=== PATIENT | female | born 1935 | race Caucasian/White ===

== ENCOUNTER 2016-09-23 17:50 | Inpatient (IN) | payer OTHER ==
[~2016-09-23] VITALS: Ht 172.7 cm; Wt 125.6 kg
[2016-09-23 17:50] VITALS: BP 101/54; PULSE 83; RESP 19; TEMP 98.2; O2SAT 92
[2016-09-23] MEDS ORDERED: IPRATROPIUM BROM 0.5 MG/2.5 ML VIAL.NEB (ATROVENT) INH ONE (18:15)
[2016-09-23] MEDS ORDERED: LEVOFLOXACIN 500 MG/D5W 100 ML IV ONE (18:15)
[2016-09-23] MEDS ORDERED: FUROSEMIDE 40 MG/4 ML VIAL IVP ONE (18:15)
[2016-09-23] MEDS ORDERED: ALBUTEROL SULFATE 0.083% 2.5 MG/3 ML VIAL.NEB INH PRN (18:15)
[2016-09-23 18:40] LABS: ABG TOTAL HEMOGLOBIN 12.9 G/dL (12.0-18.0); BLOOD GAS BASE EXCESS 1.5 mmol/L (-3.0-3.0); BLOOD GAS COHb% 1.4 % (0.5-1.5); BLOOD GAS HHB 9.3 % (0.0-6.0); BLOOD O2Hb% 89.2 % (94.0-97.0)
[2016-09-23 18:51] LABS: HEMATOCRIT 35.5 % (36-48); HEMOGLOBIN 11.8 g/dL (12.0-16.0); MEAN CORPUSCULAR HEMOGLOBIN 30 pg (27-31); MEAN CORPUSCULAR HGB CONC 33 % (32-36); MEAN CORPUSCULAR VOLUME 91 fL (79.0-98.0); PLATELET COUNT (AUTO) 177 K/uL (130-430); RED BLOOD CELL COUNT(AUTO) 3.89 MIL/uL (4.2-6.2); WHITE BLOOD COUNT (AUTO) 17.6 K/uL (4.8-10.8)
[2016-09-23 19:03] LABS: ANION GAP 6 (5-15); CALCIUM 8.6 mg/dL (8.4-11.0); CHLORIDE 95 mmol/L (98-107); GLUCOSE 191 mg/dL (70-99); POTASSIUM 3.9 mmol/L (3.5-5.1); SODIUM SERUM 136 mmol/L (136-145); UREA NITROGEN, BLOOD 29 mg/dL (8-21)
[2016-09-23 19:07] LABS: INR 1.1 (0.8-1.2); PROTHROMBIN TIME 11.5 SECS (9.5-12.5)
[2016-09-23 19:08] LABS: ALANINE AMINOTRANSFERASE 48 U/L (12-78); ALBUMIN 3.4 g/dL (3.4-4.8); ASPARTATE AMINOTRANSFERASE 30 U/L (10-37); TOTAL BILIRUBIN 0.5 mg/dL (0.0-1.0); TOTAL PROTEIN, SERUM 7.8 g/dL (6.4-8.3)
[2016-09-23] MEDS ORDERED: ERGO400T7 PO (19:15)
[2016-09-23] MEDS ORDERED: METF1000 PO (19:15)
[2016-09-23] MEDS ORDERED: LEVO100T9 PO (19:15)
[2016-09-23] MEDS ORDERED: ACET-2165 PO (19:15)
[2016-09-23] MEDS ORDERED: LIP40 PO (19:15)
[2016-09-23] MEDS ORDERED: VALS1TAB80 PO (19:15)
[2016-09-23] MEDS ORDERED: TRAZ-123 PO (19:15)
[2016-09-23] MEDS ORDERED: IBUP-1480 PO (19:15)
[2016-09-23] MEDS ORDERED: PEPTO PO (19:15)
[2016-09-23] MEDS ORDERED: DIVA250T34 PO (19:15)
[2016-09-23] MEDS ORDERED: BRI.2% OP (19:15)
[2016-09-23] MEDS ORDERED: SER25 PO (19:15)
[2016-09-23] MEDS ORDERED: NACL 0.9% 1,000 ML IV ONE (20:00)
[2016-09-23 20:01] LABS: ATYPICAL LYMPHOCYTES % 5 % (0-0); BAND % (MANUAL) 22 % (0-6); BASOPHILS % (MANUAL) 0 % (0-2); EOSINOPHILS % (MANUAL) 0 % (0-7); LYMPHOCYTES % (MANUAL) 8 % (20-46); METAMYELOCYTES % 1 % (0-0); MONOCYTES % (MANUAL) 4 % (0-11)
[2016-09-23 20:02] LABS: MYELOCYTES % 1 % (0-0)
[2016-09-23] MEDS ORDERED: IBUPROFEN 800 MG TABLET PO PRN (20:45)
[2016-09-23] MEDS ORDERED: ACETAMINOPHEN 325 MG TABLET PO PRN (20:45)
[2016-09-23 21:30] VITALS: BP 132/84; PULSE 89; PULSE 90; RESP 33; TEMP 97.8; TEMP 98.7; O2SAT 93
[2016-09-23] MEDS ORDERED: BISMUTH SUBSALICYLATE 240 ML BOTTLE PO PRN (21:45)
[2016-09-23 22:00] VITALS: BP 110/74; PULSE 75; RESP 26; O2SAT 89
[2016-09-23 22:04] VITALS: BP 108/71; PULSE 82
[2016-09-23] MEDS: DIVALPROEX SODIUM 250 MG TABLET(DEPAKOTE) PO SCH (22:57)
[2016-09-23] MEDS: ATORVASTATIN 20 MG TABLET PO SCH (22:57)
[2016-09-23] MEDS: QUEtiapine FUMARATE 25 MG TABLET PO SCH (22:57)
[2016-09-23] MEDS: traZODone HCL 50 MG TABLET (DESYREL) PO SCH (22:57)
[2016-09-23 23:00] VITALS: BP 121/74; PULSE 77; RESP 26; O2SAT 93
[2016-09-24] VITALS (34 sets, daily range): BP systolic 83–148; BP diastolic 30–80; PULSE 51–95; RESP 10–38; TEMP 97.4–99.4; O2SAT 83–98
[2016-09-24] MEDS ORDERED: FUROSEMIDE 40 MG/4 ML VIAL ONE (01:23)
[2016-09-24] MEDS ORDERED: IPRATROPIUM BROM 0.5 MG/2.5 ML VIAL.NEB (ATROVENT) INH PRN (01:30)
[2016-09-24] MEDS ORDERED: FUROSEMIDE 40 MG/4 ML VIAL IVP ONE (01:30)
[2016-09-24] MEDS ORDERED: ALBUTEROL SULFATE 0.083% 2.5 MG/3 ML VIAL.NEB INH PRN (01:30)
[2016-09-24 01:57] LABS: BLOOD GAS PH 7.239 (7.350-7.450)
[2016-09-24 01:58] LABS: ABG TOTAL HEMOGLOBIN 11.8 G/dL (12.0-18.0); BLOOD GAS BASE EXCESS 3.1 mmol/L (-3.0-3.0); BLOOD GAS COHb% 1.1 % (0.5-1.5); BLOOD GAS HHB 8.2 % (0.0-6.0); BLOOD O2Hb% 90.1 % (94.0-97.0)
[2016-09-24] MEDS ORDERED: FLU VACC QS 2016-17(36MOS+)/PF 0.5 ML/SYR SYRINGE I.M. PRN (03:00)
[2016-09-24] MEDS: IPRATROPIUM BROM 0.5 MG/2.5 ML VIAL.NEB (ATROVENT) INH SCH ×6 (03:51→23:21)
[2016-09-24] MEDS: ALBUTEROL SULFATE 0.083% 2.5 MG/3 ML VIAL.NEB INH SCH ×6 (03:51→23:21)
[2016-09-24 04:36] LABS: BASOPHILS # (AUTO) 0.2 K/uL (0.0-0.2); HEMATOCRIT 33.8 % (36-48); LYMPHOCYTES # (AUTO) 0.5 K/uL (1.0-5.5); LYMPHOCYTES % (AUTO) 3.1 % (20.5-51.5); MEAN CORPUSCULAR HEMOGLOBIN 30 pg (27-31); MEAN CORPUSCULAR HGB CONC 33 % (32-36); MEAN CORPUSCULAR VOLUME 92 fL (79.0-98.0); MONOCYTES # (AUTO) 2.5 K/uL (0.0-1.0); MONOCYTES % (AUTO) 14.3 % (1.7-9.3); NEUTROPHILS # (AUTO) 14.3 K/uL (1.8-7.7); NEUTROPHILS % (AUTO) 81.6 % (40.0-70.0); PLATELET COUNT (AUTO) 147 K/uL (130-430); RED BLOOD CELL COUNT(AUTO) 3.69 MIL/uL (4.2-6.2); RED CELL DISTRIBUTION WIDTH 15.9 % (9.0-15.0); WHITE BLOOD COUNT (AUTO) 17.5 K/uL (4.8-10.8)
[2016-09-24 04:51] LABS: ANION GAP 6 (5-15); CALCIUM 8.4 mg/dL (8.4-11.0); CHLORIDE 97 mmol/L (98-107); CREATININE 1.29 mg/dL (0.55-1.30); GLUCOSE 172 mg/dL (70-99); POTASSIUM 4.1 mmol/L (3.5-5.1); SODIUM SERUM 138 mmol/L (136-145); UREA NITROGEN, BLOOD 30 mg/dL (8-21)
[2016-09-24 05:40] LABS: FREE T4 (FREE THYROXINE) 0.8 ng/dl (0.8-1.5); THYROID STIMULATING HORMONE 0.54 uIu/mL (0.36-3.74); VALPROIC ACID 47 ug/mL (50-100)
[2016-09-24] MEDS: LEVOTHYROXINE SODIUM 0.1 MG TABLET PO SCH (06:00)
[2016-09-24] MEDS ORDERED: BISMUTH SUBSALICYLATE 240 ML BOTTLE PO PRN (07:01)
[2016-09-24] MEDS ORDERED: BISMUTH SUBSALICYLATE 262 MG TAB.CHEW PO PRN (07:15)
[2016-09-24] MEDS: VALSARTAN 160 MG TABLET (DIOVAN) PO SCH (09:00)
[2016-09-24] MEDS: CHOLECALCIFEROL (VITAMIN D-3) 400 UNIT TABLET PO SCH (09:00)
[2016-09-24] MEDS: HYDROCHLOROTHIAZIDE 25 MG TABLET (HCTZ) PO SCH (09:00)
[2016-09-24] MEDS ORDERED: VALSARTAN PO SCH (09:00)
[2016-09-24] MEDS ORDERED: HCTZ PO SCH (09:00)
[2016-09-24] MEDS: DIVALPROEX SODIUM 250 MG TABLET(DEPAKOTE) PO SCH ×2 (09:00→20:44)
[2016-09-24 10:14] LABS: BLOOD GAS PH 7.328 (7.350-7.450)
[2016-09-24 10:16] LABS: ABG TOTAL HEMOGLOBIN 11.6 G/dL (12.0-18.0); BLOOD GAS BASE EXCESS 7.5 mmol/L (-3.0-3.0); BLOOD GAS COHb% 0.7 % (0.5-1.5); BLOOD GAS HHB 11.4 % (0.0-6.0); BLOOD O2Hb% 87.4 % (94.0-97.0)
[2016-09-24] MEDS ORDERED: NS 500 ML IV ONE (10:30)
[2016-09-24] MEDS ORDERED: methylPREDNISolone SOD SUCC/PF 62.5 MG/ML VIAL IVP ONE (10:45)
[2016-09-24] MEDS ORDERED: MIDAZOLAM HCL 5 MG/5 ML VIAL ONE (11:24)
[2016-09-24] MEDS ORDERED: LORazepam 2 MG/ML VIAL IVP PRN (11:30)
[2016-09-24] MEDS: LORazepam 2 MG/ML VIAL IVP PRN ×2 (11:45→12:26)
[2016-09-24] MEDS: NACL 0.9% 1,000 ML IV SCH ×2 (12:02→18:00)
[2016-09-24] MEDS ORDERED: LORazepam 2 MG/ML VIAL ONE (12:22)
[2016-09-24] MEDS ORDERED: MIDAZOLAM HCL 2 MG/2 ML VIAL (VERSED) IVP ONE ×2 (12:30→15:45)
[2016-09-24] MEDS ORDERED: ETOMIDATE 20 MG/ 10 ML VIAL (AMIDATE) IVP ONE ×2 (12:30→15:36)
[2016-09-24] MEDS ORDERED: MIDAZOLAM HCL 5 MG/5 ML VIAL IVP ONE (12:30)
[2016-09-24 12:36] LABS: ABG TOTAL HEMOGLOBIN 11.7 G/dL (12.0-18.0); BLOOD GAS BASE EXCESS 1.7 mmol/L (-3.0-3.0); BLOOD GAS COHb% 0.9 % (0.5-1.5); BLOOD GAS HHB 3.7 % (0.0-6.0); BLOOD O2Hb% 94.8 % (94.0-97.0)
[2016-09-24] MEDS: PROPOFOL DRIP 100 ML IV PRN ×3 (12:42→23:49)
[2016-09-24] MEDS: cefTRIAXone 1 GM IVPB PREMIX 50 ML IV SCH (12:44)
[2016-09-24] MEDS: BRIMONIDINE TARTRATE 0.2% 5 mL EYE DROPS OP SCH ×2 (14:26→20:43)
[2016-09-24] MEDS: methylPREDNISolone SOD SUCC/PF 62.5 MG/ML VIAL IVP SCH ×2 (16:02→21:19)
[2016-09-24] MEDS: INSULIN REGULAR, HUMAN 100 UNITS/ML, 10 ML VIAL (novoLIN R) SUBCUT PRN (18:03)
[2016-09-24] MEDS: traZODone HCL 50 MG TABLET (DESYREL) PO SCH (20:43)
[2016-09-24] MEDS: ATORVASTATIN 20 MG TABLET PO SCH (20:44)
[2016-09-24] MEDS: QUEtiapine FUMARATE 25 MG TABLET PO SCH (20:44)
[2016-09-24] MEDS ORDERED: LEVOFLOXACIN 500 MG/D5W 100 ML IV SCH (21:00)
[2016-09-24] MEDS ORDERED: LEVOFLOXACIN 250 MG/D5W 50 ML IV SCH (21:00)
[2016-09-25] VITALS (35 sets, daily range): BP systolic 108–170; BP diastolic 54–92; PULSE 38–101; RESP 18–28; TEMP 97.3–98.6; O2SAT 87–99; Ht 172.7 cm; Wt 125.6 kg
[2016-09-25] MEDS: NACL 0.9% 1,000 ML IV SCH ×3 (00:03→16:24)
[2016-09-25] MEDS: ALBUTEROL SULFATE 0.083% 2.5 MG/3 ML VIAL.NEB INH SCH ×5 (03:51→23:26)
[2016-09-25] MEDS: IPRATROPIUM BROM 0.5 MG/2.5 ML VIAL.NEB (ATROVENT) INH SCH ×5 (03:51→23:26)
[2016-09-25] MEDS: PROPOFOL DRIP 100 ML IV PRN ×4 (05:00→20:05)
[2016-09-25] MEDS: LEVOTHYROXINE SODIUM 0.1 MG TABLET PO SCH (05:05)
[2016-09-25] MEDS: methylPREDNISolone SOD SUCC/PF 62.5 MG/ML VIAL IVP SCH ×3 (05:05→22:43)
[2016-09-25 06:41] LABS: HEMATOCRIT 30.8 % (36-48); HEMOGLOBIN 10.2 g/dL (12.0-16.0); MEAN CORPUSCULAR HEMOGLOBIN 30 pg (27-31); MEAN CORPUSCULAR HGB CONC 33 % (32-36); MEAN CORPUSCULAR VOLUME 89 fL (79.0-98.0); PLATELET COUNT (AUTO) 132 K/uL (130-430); RED BLOOD CELL COUNT(AUTO) 3.46 MIL/uL (4.2-6.2); RED CELL DISTRIBUTION WIDTH 15.7 % (9.0-15.0)
[2016-09-25 07:02] LABS: ALANINE AMINOTRANSFERASE 45 U/L (12-78); ALBUMIN 2.7 g/dL (3.4-4.8); ANION GAP 9 (5-15); ASPARTATE AMINOTRANSFERASE 30 U/L (10-37); CALCIUM 8.3 mg/dL (8.4-11.0); CHLORIDE 100 mmol/L (98-107); CHOLESTEROL 121 mg/dL (<200); CREATININE 0.97 mg/dL (0.55-1.30); GLUCOSE 242 mg/dL (70-99); HDL CHOLESTEROL 32 mg/dL (>55); LDL CHOLESTEROL 70 mg/dL (<100); POTASSIUM 3.5 mmol/L (3.5-5.1); SODIUM SERUM 137 mmol/L (136-145); THYROID STIMULATING HORMONE 0.14 uIu/mL (0.34-4.82); TOTAL BILIRUBIN 0.5 mg/dL (0.0-1.0); TOTAL PROTEIN, SERUM 6.6 g/dL (6.4-8.3); TRIGLYCERIDES 97 mg/dL (30-150); UREA NITROGEN, BLOOD 30 mg/dL (8-21)
[2016-09-25 07:07] LABS: WHITE BLOOD COUNT (AUTO) 9.5 K/uL (4.8-10.8)
[2016-09-25] MEDS: INSULIN REGULAR, HUMAN 100 UNITS/ML, 10 ML VIAL (novoLIN R) SUBCUT PRN ×2 (08:03→17:24)
[2016-09-25 08:07] LABS: ABG TOTAL HEMOGLOBIN 11.3 G/dL (12.0-18.0); BLOOD GAS BASE EXCESS 3.4 mmol/L (-3.0-3.0); BLOOD GAS PH 7.522 (7.350-7.450)
[2016-09-25 08:08] LABS: BLOOD GAS COHb% 0.5 % (0.5-1.5); BLOOD GAS HHB 9.5 % (0.0-6.0); BLOOD O2Hb% 89.6 % (94.0-97.0)
[2016-09-25] MEDS ORDERED: ATROPINE SULFATE 1 MG/10 ML SYRINGE IVP ONE ×2 (08:50→09:00)
[2016-09-25] MEDS ORDERED: THEOPHYLLINE ANHYDROUS 200 MG TAB.SR.12H PO SCH (09:00)
[2016-09-25] MEDS ORDERED: ENOXAPARIN SODIUM 40 MG/0.4 ML SYRINGE SUBCUT SCH (09:00)
[2016-09-25] MEDS ORDERED: POTASSIUM CHLORIDE 20 MEQ TAB.PRT.SR NG ONE (09:15)
[2016-09-25] MEDS: BRIMONIDINE TARTRATE 0.2% 5 mL EYE DROPS OP SCH ×2 (09:20→20:23)
[2016-09-25] MEDS: HYDROCHLOROTHIAZIDE 25 MG TABLET (HCTZ) PO SCH (09:21)
[2016-09-25] MEDS: DIVALPROEX SODIUM 250 MG TABLET(DEPAKOTE) PO SCH ×2 (09:21→20:23)
[2016-09-25] MEDS: VALSARTAN 160 MG TABLET (DIOVAN) PO SCH (09:21)
[2016-09-25] MEDS: AZITHROMYCIN 250 MG TABLET PO SCH (09:22)
[2016-09-25] MEDS: CHOLECALCIFEROL (VITAMIN D-3) 400 UNIT TABLET PO SCH (09:22)
[2016-09-25 10:11] LABS: ATYPICAL LYMPHOCYTES % 0 % (0-0); BAND % (MANUAL) 3 % (0-6); BASOPHILS % (MANUAL) 0 % (0-2); EOSINOPHILS % (MANUAL) 0 % (0-7); LYMPHOCYTES % (MANUAL) 7 % (20-46); MONOCYTES % (MANUAL) 5 % (0-11)
[2016-09-25 10:12] LABS: SICKLE CELLS RARE
[2016-09-25] MEDS ORDERED: ENOXAPARIN SODIUM 80 MG/0.8 ML SYRINGE SUBCUT ONE (10:30)
[2016-09-25] MEDS ORDERED: THEOPHYLLINE ANHYDROUS 300 MG TAB.SR.12H PO ONE (11:45)
[2016-09-25] MEDS: cefTRIAXone 1 GM IVPB PREMIX 50 ML IV SCH (11:54)
[2016-09-25] MEDS: QUEtiapine FUMARATE 25 MG TABLET PO SCH (20:23)
[2016-09-25] MEDS: ATORVASTATIN 20 MG TABLET PO SCH (20:23)
[2016-09-25] MEDS: traZODone HCL 50 MG TABLET (DESYREL) PO SCH (20:23)
[2016-09-25] MEDS: ENOXAPARIN SODIUM 80 MG/0.8 ML SYRINGE SUBCUT SCH (20:26)
[2016-09-26] VITALS (38 sets, daily range): BP systolic 105–146; BP diastolic 51–91; PULSE 39–81; RESP 9–33; TEMP 97.4–98.4; O2SAT 90–97
[2016-09-26] MEDS: PROPOFOL DRIP 100 ML IV PRN ×5 (00:54→21:05)
[2016-09-26] MEDS: NACL 0.9% 1,000 ML IV SCH ×4 (01:04→21:54)
[2016-09-26] MEDS: ALBUTEROL SULFATE 0.083% 2.5 MG/3 ML VIAL.NEB INH SCH ×6 (03:51→23:00)
[2016-09-26] MEDS: IPRATROPIUM BROM 0.5 MG/2.5 ML VIAL.NEB (ATROVENT) INH SCH ×6 (03:52→23:00)
[2016-09-26] MEDS: methylPREDNISolone SOD SUCC/PF 62.5 MG/ML VIAL IVP SCH ×3 (06:13→21:26)
[2016-09-26] MEDS: LEVOTHYROXINE SODIUM 0.1 MG TABLET PO SCH (06:13)
[2016-09-26] MEDS: INSULIN REGULAR, HUMAN 100 UNITS/ML, 10 ML VIAL (novoLIN R) SUBCUT PRN ×2 (06:25→16:50)
[2016-09-26 06:35] LABS: BASOPHILS % (AUTO) 0.4 % (0.0-2.0); HEMOGLOBIN 10.6 g/dL (12.0-16.0); LYMPHOCYTES # (AUTO) 0.2 K/uL (1.0-5.5); LYMPHOCYTES % (AUTO) 2.7 % (20.5-51.5); MEAN CORPUSCULAR HEMOGLOBIN 30 pg (27-31); MEAN CORPUSCULAR HGB CONC 33 % (32-36); MEAN CORPUSCULAR VOLUME 91 fL (79.0-98.0); MONOCYTES # (AUTO) 0.5 K/uL (0.0-1.0); MONOCYTES % (AUTO) 5.2 % (1.7-9.3); NEUTROPHILS # (AUTO) 8.4 K/uL (1.8-7.7); NEUTROPHILS % (AUTO) 91.7 % (40.0-70.0); PLATELET COUNT (AUTO) 141 K/uL (130-430); RED BLOOD CELL COUNT(AUTO) 3.53 MIL/uL (4.2-6.2); RED CELL DISTRIBUTION WIDTH 15.9 % (9.0-15.0); WHITE BLOOD COUNT (AUTO) 9.1 K/uL (4.8-10.8)
[2016-09-26 07:27] LABS: ANION GAP 8 (5-15); CALCIUM 8.3 mg/dL (8.4-11.0); CHLORIDE 101 mmol/L (98-107); CREATININE 0.83 mg/dL (0.55-1.30); GLUCOSE 228 mg/dL (70-99); POTASSIUM 3.3 mmol/L (3.5-5.1); SODIUM SERUM 137 mmol/L (136-145); UREA NITROGEN, BLOOD 27 mg/dL (8-21)
[2016-09-26 07:28] LABS: THYROID STIMULATING HORMONE 0.05 uIu/mL (0.34-4.82)
[2016-09-26 08:34] LABS: BLOOD GAS COHb% 0.1 % (0.5-1.5); BLOOD GAS HHB 6.8 % (0.0-6.0); BLOOD GAS PH 7.448 (7.350-7.450)
[2016-09-26] MEDS: VALSARTAN 160 MG TABLET (DIOVAN) PO SCH (08:46)
[2016-09-26] MEDS: HYDROCHLOROTHIAZIDE 25 MG TABLET (HCTZ) PO SCH (08:47)
[2016-09-26] MEDS: AZITHROMYCIN 250 MG TABLET PO SCH (08:47)
[2016-09-26] MEDS: DIVALPROEX SODIUM 250 MG TABLET(DEPAKOTE) PO SCH ×2 (08:48→21:24)
[2016-09-26] MEDS: CHOLECALCIFEROL (VITAMIN D-3) 400 UNIT TABLET PO SCH (08:48)
[2016-09-26] MEDS: ENOXAPARIN SODIUM 80 MG/0.8 ML SYRINGE SUBCUT SCH (08:51)
[2016-09-26] MEDS: BRIMONIDINE TARTRATE 0.2% 5 mL EYE DROPS OP SCH ×2 (08:54→21:23)
[2016-09-26] MEDS ORDERED: THEOPHYLLINE ANHYDROUS 300 MG TAB.SR.12H PO SCH (09:00)
[2016-09-26] MEDS ORDERED: ATROPINE SULFATE 1 MG/10 ML SYRINGE IVP ONE (09:00)
[2016-09-26] MEDS ORDERED: ATROPINE SULFATE 1 MG/10 ML SYRINGE IVP PRN (09:45)
[2016-09-26] MEDS ORDERED: IOHEXOL 350 mgI/mL, 150 ML INFUS..BTL IV ONE (10:40)
[2016-09-26] MEDS: cefTRIAXone 1 GM IVPB PREMIX 50 ML IV SCH (12:11)
[2016-09-26] MEDS ORDERED: [UNRECOGNIZED DRUG - OTHER] IV ONE ×4 (12:30)
[2016-09-26] MEDS ORDERED: LIDOCAINE JECT IV ONE ×4 (12:30)
[2016-09-26] MEDS ORDERED: POTASSIUM CHLORIDE IV ONE ×4 (12:30)
[2016-09-26 13:10] LABS: INR 1.1 (0.8-1.2); PROTHROMBIN TIME 12.2 SECS (9.5-12.5)
[2016-09-26] MEDS ORDERED: ENOXAPARIN SODIUM 100 MG/ML SYRINGE SUBCUT SCH (21:00)
[2016-09-26] MEDS ORDERED: ENOXAPARIN SODIUM 80 MG/0.8 ML SYRINGE SUBCUT SCH (21:00)
[2016-09-26] MEDS: traZODone HCL 50 MG TABLET (DESYREL) PO SCH (21:24)
[2016-09-26] MEDS: ATORVASTATIN 20 MG TABLET PO SCH (21:24)
[2016-09-26] MEDS: QUEtiapine FUMARATE 25 MG TABLET PO SCH (21:25)
[2016-09-26] MEDS: THEOPHYLLINE ANHYDROUS 300 MG TAB.SR.12H PO SCH (21:25)
[2016-09-27] VITALS (35 sets, daily range): BP systolic 91–142; BP diastolic 43–84; PULSE 45–80; RESP 16–44; TEMP 97.4–97.9; O2SAT 92–98
[2016-09-27] MEDS: PROPOFOL DRIP 100 ML IV PRN ×6 (00:16→23:24)
[2016-09-27] MEDS: ALBUTEROL SULFATE 0.083% 2.5 MG/3 ML VIAL.NEB INH SCH ×6 (03:40→22:21)
[2016-09-27] MEDS: IPRATROPIUM BROM 0.5 MG/2.5 ML VIAL.NEB (ATROVENT) INH SCH ×6 (03:40→22:21)
[2016-09-27] MEDS: LEVOTHYROXINE SODIUM 0.1 MG TABLET PO SCH (05:51)
[2016-09-27] MEDS: methylPREDNISolone SOD SUCC/PF 62.5 MG/ML VIAL IVP SCH ×3 (05:51→21:13)
[2016-09-27] MEDS: INSULIN REGULAR, HUMAN 100 UNITS/ML, 10 ML VIAL (novoLIN R) SUBCUT PRN ×2 (06:38→18:16)
[2016-09-27 06:48] LABS: BASOPHILS % (AUTO) 0.3 % (0.0-2.0); HEMATOCRIT 31.6 % (36-48); HEMOGLOBIN 10.6 g/dL (12.0-16.0); LYMPHOCYTES # (AUTO) 0.3 K/uL (1.0-5.5); LYMPHOCYTES % (AUTO) 4.1 % (20.5-51.5); MEAN CORPUSCULAR HEMOGLOBIN 30 pg (27-31); MEAN CORPUSCULAR HGB CONC 34 % (32-36); MEAN CORPUSCULAR VOLUME 90 fL (79.0-98.0); MONOCYTES # (AUTO) 1.1 K/uL (0.0-1.0); MONOCYTES % (AUTO) 16.2 % (1.7-9.3); NEUTROPHILS # (AUTO) 5.2 K/uL (1.8-7.7); NEUTROPHILS % (AUTO) 79.4 % (40.0-70.0); PLATELET COUNT (AUTO) 137 K/uL (130-430); RED BLOOD CELL COUNT(AUTO) 3.52 MIL/uL (4.2-6.2); RED CELL DISTRIBUTION WIDTH 15.3 % (9.0-15.0); WHITE BLOOD COUNT (AUTO) 6.6 K/uL (4.8-10.8)
[2016-09-27 07:08] LABS: ALANINE AMINOTRANSFERASE 20 U/L (12-78); ALBUMIN 1.5 g/dL (3.4-4.8); ANION GAP 2 (5-15); ASPARTATE AMINOTRANSFERASE 14 U/L (10-37); CALCIUM 7.2 mg/dL (8.4-11.0); CHLORIDE 108 mmol/L (98-107); CREATININE 0.81 mg/dL (0.55-1.30); GLUCOSE 246 mg/dL (70-99); POTASSIUM 3.5 mmol/L (3.5-5.1); SODIUM SERUM 139 mmol/L (136-145); TOTAL BILIRUBIN 0.3 mg/dL (0.0-1.0); TOTAL PROTEIN, SERUM 3.8 g/dL (6.4-8.3); UREA NITROGEN, BLOOD 28 mg/dL (8-21)
[2016-09-27 08:08] LABS: ABG TOTAL HEMOGLOBIN 12.4 G/dL (12.0-18.0); BLOOD GAS BASE EXCESS 2.5 mmol/L (-3.0-3.0); BLOOD GAS COHb% 0.3 % (0.5-1.5); BLOOD GAS HHB 5.5 % (0.0-6.0); BLOOD GAS PH 7.459 (7.350-7.450); BLOOD O2Hb% 94.2 % (94.0-97.0)
[2016-09-27] MEDS: CHOLECALCIFEROL (VITAMIN D-3) 400 UNIT TABLET PO SCH (08:09)
[2016-09-27] MEDS: AZITHROMYCIN 250 MG TABLET PO SCH (08:11)
[2016-09-27] MEDS: QUEtiapine FUMARATE 25 MG TABLET PO SCH ×2 (08:12→21:14)
[2016-09-27] MEDS: VALSARTAN 160 MG TABLET (DIOVAN) PO SCH (08:12)
[2016-09-27] MEDS: HYDROCHLOROTHIAZIDE 25 MG TABLET (HCTZ) PO SCH (08:12)
[2016-09-27] MEDS: DIVALPROEX SODIUM 250 MG TABLET(DEPAKOTE) PO SCH ×2 (08:14→21:13)
[2016-09-27] MEDS: ENOXAPARIN SODIUM 40 MG/0.4 ML SYRINGE SUBCUT SCH (08:15)
[2016-09-27] MEDS: BRIMONIDINE TARTRATE 0.2% 5 mL EYE DROPS OP SCH ×2 (08:15→21:13)
[2016-09-27] MEDS: THEOPHYLLINE ANHYDROUS 300 MG TAB.SR.12H PO SCH ×2 (08:15→21:14)
[2016-09-27] MEDS: cefTRIAXone 1 GM IVPB PREMIX 50 ML IV SCH (11:45)
[2016-09-27] MEDS: NACL 0.9% 1,000 ML IV SCH (11:46)
[2016-09-27] MEDS ORDERED: MORPHINE 4 MG/ML INJ. SYRINGE IVP PRN (16:00)
[2016-09-27] MEDS: MORPHINE 2 MG/ML INJ. SYRINGE IVP PRN (16:30)
[2016-09-27] MEDS: traZODone HCL 50 MG TABLET (DESYREL) PO SCH (21:13)
[2016-09-27] MEDS: ATORVASTATIN 20 MG TABLET PO SCH (21:13)
[2016-09-28] VITALS (36 sets, daily range): BP systolic 108–175; BP diastolic 57–90; PULSE 43–67; RESP 15–23; TEMP 97–98.5; O2SAT 93–100
[2016-09-28] MEDS: NACL 0.9% 1,000 ML IV SCH ×2 (02:19→19:35)
[2016-09-28] MEDS: PROPOFOL DRIP 100 ML IV PRN ×5 (02:24→21:16)
[2016-09-28] MEDS: ALBUTEROL SULFATE 0.083% 2.5 MG/3 ML VIAL.NEB INH SCH ×6 (02:57→23:50)
[2016-09-28] MEDS: IPRATROPIUM BROM 0.5 MG/2.5 ML VIAL.NEB (ATROVENT) INH SCH ×6 (02:58→23:50)
[2016-09-28] MEDS: methylPREDNISolone SOD SUCC/PF 62.5 MG/ML VIAL IVP SCH ×3 (05:43→21:14)
[2016-09-28] MEDS: LEVOTHYROXINE SODIUM 0.1 MG TABLET PO SCH (05:43)
[2016-09-28] MEDS: INSULIN REGULAR, HUMAN 100 UNITS/ML, 10 ML VIAL (novoLIN R) SUBCUT PRN ×2 (06:19→12:23)
[2016-09-28 06:53] LABS: BASOPHILS % (AUTO) 0.3 % (0.0-2.0); HEMATOCRIT 31.3 % (36-48); HEMOGLOBIN 10.2 g/dL (12.0-16.0); LYMPHOCYTES # (AUTO) 0.2 K/uL (1.0-5.5); LYMPHOCYTES % (AUTO) 4.3 % (20.5-51.5); MEAN CORPUSCULAR HEMOGLOBIN 30 pg (27-31); MEAN CORPUSCULAR HGB CONC 33 % (32-36); MEAN CORPUSCULAR VOLUME 90 fL (79.0-98.0); MONOCYTES # (AUTO) 0.4 K/uL (0.0-1.0); MONOCYTES % (AUTO) 7.9 % (1.7-9.3); NEUTROPHILS # (AUTO) 4.9 K/uL (1.8-7.7); NEUTROPHILS % (AUTO) 87.5 % (40.0-70.0); PLATELET COUNT (AUTO) 120 K/uL (130-430); RED BLOOD CELL COUNT(AUTO) 3.47 MIL/uL (4.2-6.2); RED CELL DISTRIBUTION WIDTH 15.4 % (9.0-15.0); WHITE BLOOD COUNT (AUTO) 5.5 K/uL (4.8-10.8)
[2016-09-28 07:10] LABS: ANION GAP 6 (5-15); CALCIUM 7.9 mg/dL (8.4-11.0); CHLORIDE 102 mmol/L (98-107); CREATININE 0.81 mg/dL (0.55-1.30); GLUCOSE 306 mg/dL (70-99); POTASSIUM 3.9 mmol/L (3.5-5.1); SODIUM SERUM 137 mmol/L (136-145); UREA NITROGEN, BLOOD 27 mg/dL (8-21)
[2016-09-28 08:07] LABS: BLOOD GAS PH 7.417 (7.350-7.450)
[2016-09-28 08:08] LABS: ABG TOTAL HEMOGLOBIN 11.9 G/dL (12.0-18.0); BLOOD GAS BASE EXCESS 2.1 mmol/L (-3.0-3.0); BLOOD GAS COHb% 0.2 % (0.5-1.5); BLOOD GAS HHB 7.4 % (0.0-6.0); BLOOD O2Hb% 92.3 % (94.0-97.0)
[2016-09-28 09:39] LABS: BLOOD GAS PH 7.425 (7.350-7.450)
[2016-09-28 09:40] LABS: ABG TOTAL HEMOGLOBIN 12.5 G/dL (12.0-18.0); BLOOD GAS BASE EXCESS 0.7 mmol/L (-3.0-3.0); BLOOD GAS COHb% 0.5 % (0.5-1.5); BLOOD GAS HHB 10.8 % (0.0-6.0); BLOOD O2Hb% 88.3 % (94.0-97.0)
[2016-09-28] MEDS: HYDROCHLOROTHIAZIDE 25 MG TABLET (HCTZ) PO SCH (09:47)
[2016-09-28] MEDS: VALSARTAN 160 MG TABLET (DIOVAN) PO SCH (09:47)
[2016-09-28] MEDS: AZITHROMYCIN 250 MG TABLET PO SCH (09:49)
[2016-09-28] MEDS: QUEtiapine FUMARATE 25 MG TABLET PO SCH ×2 (09:49→21:09)
[2016-09-28] MEDS: DIVALPROEX SODIUM 250 MG TABLET(DEPAKOTE) PO SCH ×2 (09:50→21:08)
[2016-09-28] MEDS: ENOXAPARIN SODIUM 40 MG/0.4 ML SYRINGE SUBCUT SCH (09:50)
[2016-09-28] MEDS: CHOLECALCIFEROL (VITAMIN D-3) 400 UNIT TABLET PO SCH (09:50)
[2016-09-28] MEDS: THEOPHYLLINE ANHYDROUS 300 MG TAB.SR.12H PO SCH ×2 (09:53→21:10)
[2016-09-28] MEDS: BRIMONIDINE TARTRATE 0.2% 5 mL EYE DROPS OP SCH ×2 (09:53→21:11)
[2016-09-28] MEDS: cefTRIAXone 1 GM IVPB PREMIX 50 ML IV SCH (12:22)
[2016-09-28] MEDS ORDERED: MILK OF MAGNESIA 30 ML UDC PO PRN (13:15)
[2016-09-28] MEDS ORDERED: BISACODYL 10 MG/SUPPOSITORY RC PRN (13:15)
[2016-09-28] MEDS: ATORVASTATIN 20 MG TABLET PO SCH (21:08)
[2016-09-28] MEDS: traZODone HCL 50 MG TABLET (DESYREL) PO SCH (21:09)
[2016-09-29] VITALS (36 sets, daily range): BP systolic 117–179; BP diastolic 51–100; PULSE 45–92; RESP 9–33; TEMP 97.3–99; O2SAT 93–100
[2016-09-29] MEDS: PROPOFOL DRIP 100 ML IV PRN ×5 (01:22→23:21)
[2016-09-29] MEDS: ALBUTEROL SULFATE 0.083% 2.5 MG/3 ML VIAL.NEB INH SCH ×6 (02:58→23:24)
[2016-09-29] MEDS: IPRATROPIUM BROM 0.5 MG/2.5 ML VIAL.NEB (ATROVENT) INH SCH ×6 (02:58→23:24)
[2016-09-29] MEDS: LEVOTHYROXINE SODIUM 0.1 MG TABLET PO SCH (06:18)
[2016-09-29] MEDS: methylPREDNISolone SOD SUCC/PF 62.5 MG/ML VIAL IVP SCH ×3 (06:19→21:37)
[2016-09-29 08:22] LABS: BLOOD GAS PH 7.356 (7.350-7.450)
[2016-09-29 08:23] LABS: ABG TOTAL HEMOGLOBIN 13.1 G/dL (12.0-18.0); BLOOD GAS BASE EXCESS 2.9 mmol/L (-3.0-3.0); BLOOD GAS COHb% 0.4 % (0.5-1.5); BLOOD GAS HHB 5.4 % (0.0-6.0); BLOOD O2Hb% 93.6 % (94.0-97.0)
[2016-09-29] MEDS: THEOPHYLLINE ANHYDROUS 300 MG TAB.SR.12H PO SCH ×2 (09:01→21:38)
[2016-09-29] MEDS: ENOXAPARIN SODIUM 40 MG/0.4 ML SYRINGE SUBCUT SCH (09:01)
[2016-09-29] MEDS: CHOLECALCIFEROL (VITAMIN D-3) 400 UNIT TABLET PO SCH (09:02)
[2016-09-29] MEDS: HYDROCHLOROTHIAZIDE 25 MG TABLET (HCTZ) PO SCH (09:02)
[2016-09-29] MEDS: QUEtiapine FUMARATE 25 MG TABLET PO SCH ×2 (09:03→21:40)
[2016-09-29] MEDS: DIVALPROEX SODIUM 250 MG TABLET(DEPAKOTE) PO SCH ×2 (09:03→21:37)
[2016-09-29] MEDS: VALSARTAN 160 MG TABLET (DIOVAN) PO SCH (09:03)
[2016-09-29] MEDS: BRIMONIDINE TARTRATE 0.2% 5 mL EYE DROPS OP SCH ×2 (09:04→21:37)
[2016-09-29] MEDS: AZITHROMYCIN 250 MG TABLET PO SCH (11:01)
[2016-09-29] MEDS: cefTRIAXone 1 GM IVPB PREMIX 50 ML IV SCH (11:15)
[2016-09-29] MEDS: INSULIN REGULAR, HUMAN 100 UNITS/ML, 10 ML VIAL (novoLIN R) SUBCUT PRN (17:13)
[2016-09-29] MEDS: NACL 0.9% 1,000 ML IV SCH (20:19)
[2016-09-29] MEDS ORDERED: QUEtiapine FUMARATE 25 MG TABLET PO SCH ×2 (21:00)
[2016-09-29] MEDS: ATORVASTATIN 20 MG TABLET PO SCH (21:37)
[2016-09-29] MEDS: traZODone HCL 50 MG TABLET (DESYREL) PO SCH (21:37)
[2016-09-30] VITALS (37 sets, daily range): BP systolic 101–167; BP diastolic 45–106; PULSE 48–80; RESP 13–28; TEMP 97.1–98.3; O2SAT 93–98
[2016-09-30] MEDS: IPRATROPIUM BROM 0.5 MG/2.5 ML VIAL.NEB (ATROVENT) INH SCH ×6 (03:11→23:28)
[2016-09-30] MEDS: ALBUTEROL SULFATE 0.083% 2.5 MG/3 ML VIAL.NEB INH SCH ×6 (03:12→23:28)
[2016-09-30] MEDS: PROPOFOL DRIP 100 ML IV PRN ×3 (05:01→18:28)
[2016-09-30] MEDS: LEVOTHYROXINE SODIUM 0.1 MG TABLET PO SCH (05:19)
[2016-09-30] MEDS: methylPREDNISolone SOD SUCC/PF 62.5 MG/ML VIAL IVP SCH (05:20)
[2016-09-30 06:38] LABS: HEMOGLOBIN 11.3 g/dL (12.0-16.0); MEAN CORPUSCULAR HEMOGLOBIN 30 pg (27-31); MEAN CORPUSCULAR HGB CONC 33 % (32-36); MEAN CORPUSCULAR VOLUME 89 fL (79.0-98.0); PLATELET COUNT (AUTO) 111 K/uL (130-430); RED BLOOD CELL COUNT(AUTO) 3.82 MIL/uL (4.2-6.2); RED CELL DISTRIBUTION WIDTH 15.3 % (9.0-15.0)
[2016-09-30] MEDS: INSULIN REGULAR, HUMAN 100 UNITS/ML, 10 ML VIAL (novoLIN R) SUBCUT PRN ×2 (06:39→17:28)
[2016-09-30 06:54] LABS: ALANINE AMINOTRANSFERASE 41 U/L (12-78); ALBUMIN 2.6 g/dL (3.4-4.8); ANION GAP 7 (5-15); ASPARTATE AMINOTRANSFERASE 17 U/L (10-37); CALCIUM 8.4 mg/dL (8.4-11.0); CHLORIDE 101 mmol/L (98-107); CREATININE 0.76 mg/dL (0.55-1.30); GLUCOSE 311 mg/dL (70-99); POTASSIUM 4.1 mmol/L (3.5-5.1); SODIUM SERUM 139 mmol/L (136-145); TOTAL BILIRUBIN 0.3 mg/dL (0.0-1.0); TOTAL PROTEIN, SERUM 6.1 g/dL (6.4-8.3); UREA NITROGEN, BLOOD 27 mg/dL (8-21)
[2016-09-30 07:52] LABS: WHITE BLOOD COUNT (AUTO) 9.9 K/uL (4.8-10.8)
[2016-09-30] MEDS: VALSARTAN 160 MG TABLET (DIOVAN) PO SCH (08:22)
[2016-09-30] MEDS: HYDROCHLOROTHIAZIDE 25 MG TABLET (HCTZ) PO SCH (08:23)
[2016-09-30] MEDS: DIVALPROEX SODIUM 250 MG TABLET(DEPAKOTE) PO SCH ×2 (08:23→20:10)
[2016-09-30] MEDS: CHOLECALCIFEROL (VITAMIN D-3) 400 UNIT TABLET PO SCH (08:23)
[2016-09-30] MEDS: THEOPHYLLINE ANHYDROUS 300 MG TAB.SR.12H PO SCH ×2 (08:24→20:10)
[2016-09-30 08:53] LABS: ATYPICAL LYMPHOCYTES % 4 % (0-0); BAND % (MANUAL) 1 % (0-6); BASOPHILS % (MANUAL) 0 % (0-2); EOSINOPHILS % (MANUAL) 0 % (0-7); LYMPHOCYTES % (MANUAL) 10 % (20-46); MONOCYTES % (MANUAL) 8 % (0-11)
[2016-09-30 08:54] LABS: METAMYELOCYTES % 2 % (0-0)
[2016-09-30] MEDS: LORazepam 2 MG/ML VIAL IVP PRN ×2 (09:37→15:53)
[2016-09-30] MEDS: BRIMONIDINE TARTRATE 0.2% 5 mL EYE DROPS OP SCH ×2 (09:37→23:55)
[2016-09-30] MEDS: QUEtiapine FUMARATE 25 MG TABLET PO SCH ×2 (10:21→20:09)
[2016-09-30] MEDS: ENOXAPARIN SODIUM 40 MG/0.4 ML SYRINGE SUBCUT SCH (10:21)
[2016-09-30] MEDS: NACL 0.9% 1,000 ML IV SCH (10:22)
[2016-09-30 12:02] LABS: ABG TOTAL HEMOGLOBIN 12.2 G/dL (12.0-18.0); BLOOD GAS BASE EXCESS 5.2 mmol/L (-3.0-3.0); BLOOD GAS COHb% 0.3 % (0.5-1.5); BLOOD GAS HHB 8.3 % (0.0-6.0); BLOOD GAS PH 7.442 (7.350-7.450); BLOOD O2Hb% 91.2 % (94.0-97.0)
[2016-09-30] MEDS: cefTRIAXone 1 GM IVPB PREMIX 50 ML IV SCH (12:24)
[2016-09-30] MEDS ORDERED: cefTRIAXone 1 GM in D5W 50 ML IV SCH (15:15)
[2016-09-30] MEDS: traZODone HCL 50 MG TABLET (DESYREL) PO SCH (20:10)
[2016-09-30] MEDS: ATORVASTATIN 20 MG TABLET PO SCH (20:10)
[2016-10-01] VITALS (36 sets, daily range): BP systolic 91–145; BP diastolic 50–85; PULSE 60–90; RESP 14–36; TEMP 97.8–99.9; O2SAT 90–96
[2016-10-01] MEDS: PROPOFOL DRIP 100 ML IV PRN ×3 (00:55→14:52)
[2016-10-01] MEDS: IPRATROPIUM BROM 0.5 MG/2.5 ML VIAL.NEB (ATROVENT) INH SCH ×6 (02:43→23:10)
[2016-10-01] MEDS: ALBUTEROL SULFATE 0.083% 2.5 MG/3 ML VIAL.NEB INH SCH ×6 (02:44→23:10)
[2016-10-01] MEDS: LORazepam 2 MG/ML VIAL IVP PRN (06:21)
[2016-10-01] MEDS: LEVOTHYROXINE SODIUM 0.1 MG TABLET PO SCH (06:21)
[2016-10-01] MEDS ORDERED: PROPOFOL DRIP 100 ML IV ONE (06:29)
[2016-10-01] MEDS: INSULIN REGULAR, HUMAN 100 UNITS/ML, 10 ML VIAL (novoLIN R) SUBCUT PRN ×2 (06:42→16:31)
[2016-10-01 06:47] LABS: HEMOGLOBIN 11.5 g/dL (12.0-16.0); MEAN CORPUSCULAR HEMOGLOBIN 29 pg (27-31); MEAN CORPUSCULAR HGB CONC 32 % (32-36); MEAN CORPUSCULAR VOLUME 90 fL (79.0-98.0); PLATELET COUNT (AUTO) 114 K/uL (130-430); RED BLOOD CELL COUNT(AUTO) 3.98 MIL/uL (4.2-6.2); RED CELL DISTRIBUTION WIDTH 15.9 % (9.0-15.0)
[2016-10-01 07:26] LABS: WHITE BLOOD COUNT (AUTO) 11.6 K/uL (4.8-10.8)
[2016-10-01] MEDS: MORPHINE 2 MG/ML INJ. SYRINGE IVP PRN (07:39)
[2016-10-01] MEDS: DIVALPROEX SODIUM 250 MG TABLET(DEPAKOTE) PO SCH ×2 (08:46→21:02)
[2016-10-01] MEDS: BRIMONIDINE TARTRATE 0.2% 5 mL EYE DROPS OP SCH ×2 (08:46→21:02)
[2016-10-01] MEDS: HYDROCHLOROTHIAZIDE 25 MG TABLET (HCTZ) PO SCH (08:47)
[2016-10-01] MEDS: VALSARTAN 160 MG TABLET (DIOVAN) PO SCH (08:47)
[2016-10-01] MEDS: THEOPHYLLINE ANHYDROUS 300 MG TAB.SR.12H PO SCH ×2 (08:48→21:03)
[2016-10-01] MEDS: ENOXAPARIN SODIUM 40 MG/0.4 ML SYRINGE SUBCUT SCH (08:48)
[2016-10-01 09:00] LABS: ATYPICAL LYMPHOCYTES % 0 % (0-0); BAND % (MANUAL) 1 % (0-6); BASOPHILS % (MANUAL) 0 % (0-2); EOSINOPHILS % (MANUAL) 1 % (0-7); LYMPHOCYTES % (MANUAL) 13 % (20-46); MONOCYTES % (MANUAL) 23 % (0-11)
[2016-10-01] MEDS ORDERED: methylPREDNISolone SOD SUCC/PF 62.5 MG/ML VIAL IVP SCH (09:00)
[2016-10-01] MEDS: CHOLECALCIFEROL (VITAMIN D-3) 400 UNIT TABLET PO SCH (09:01)
[2016-10-01] MEDS: QUEtiapine FUMARATE 100 MG TABLET PO SCH ×2 (09:10→21:02)
[2016-10-01] MEDS: cefTRIAXone 1 GM IVPB PREMIX 50 ML IV SCH (12:47)
[2016-10-01] MEDS: NACL 0.9% 1,000 ML IV SCH (13:21)
[2016-10-01 14:20] LABS: BLOOD GAS PH 7.411 (7.350-7.450)
[2016-10-01 14:21] LABS: ABG TOTAL HEMOGLOBIN 12.9 G/dL (12.0-18.0); BLOOD GAS BASE EXCESS 6.4 mmol/L (-3.0-3.0); BLOOD GAS COHb% 0.1 % (0.5-1.5); BLOOD GAS HHB 6.9 % (0.0-6.0); BLOOD O2Hb% 92.8 % (94.0-97.0)
[2016-10-01] MEDS: traZODone HCL 50 MG TABLET (DESYREL) PO SCH (21:02)
[2016-10-01] MEDS: ATORVASTATIN 20 MG TABLET PO SCH (21:02)
[2016-10-02] VITALS (29 sets, daily range): BP systolic 93–165; BP diastolic 39–110; PULSE 59–92; RESP 12–30; TEMP 97.8–99.2; O2SAT 84–93
[2016-10-02] MEDS: PROPOFOL DRIP 100 ML IV PRN ×4 (01:11→06:49)
[2016-10-02] MEDS: ALBUTEROL SULFATE 0.083% 2.5 MG/3 ML VIAL.NEB INH SCH ×6 (04:24→23:47)
[2016-10-02] MEDS: IPRATROPIUM BROM 0.5 MG/2.5 ML VIAL.NEB (ATROVENT) INH SCH ×6 (04:24→23:48)
[2016-10-02] MEDS: LEVOTHYROXINE SODIUM 0.1 MG TABLET PO SCH (05:15)
[2016-10-02] MEDS: NACL 0.9% 1,000 ML IV SCH ×2 (05:17→14:42)
[2016-10-02] MEDS: INSULIN REGULAR, HUMAN 100 UNITS/ML, 10 ML VIAL (novoLIN R) SUBCUT PRN ×2 (06:08→17:16)
[2016-10-02] MEDS ORDERED: FUROSEMIDE 20 MG/2 ML VIAL IVP ONE (06:45)
[2016-10-02 07:23] LABS: ABG TOTAL HEMOGLOBIN 12.5 G/dL (12.0-18.0); BLOOD GAS BASE EXCESS 5.2 mmol/L (-3.0-3.0); BLOOD GAS COHb% 0.7 % (0.5-1.5); BLOOD GAS HHB 8.5 % (0.0-6.0); BLOOD GAS PH 7.453 (7.350-7.450); BLOOD O2Hb% 90.3 % (94.0-97.0)
[2016-10-02 07:25] LABS: HEMATOCRIT 36.5 % (36-48); HEMOGLOBIN 11.8 g/dL (12.0-16.0); MEAN CORPUSCULAR HEMOGLOBIN 29 pg (27-31); MEAN CORPUSCULAR HGB CONC 32 % (32-36); MEAN CORPUSCULAR VOLUME 90 fL (79.0-98.0); PLATELET COUNT (AUTO) 95 K/uL (130-430); RED BLOOD CELL COUNT(AUTO) 4.05 MIL/uL (4.2-6.2); RED CELL DISTRIBUTION WIDTH 15.6 % (9.0-15.0); WHITE BLOOD COUNT (AUTO) 10.7 K/uL (4.8-10.8)
[2016-10-02 07:44] LABS: ANION GAP 5 (5-15); CALCIUM 8.5 mg/dL (8.4-11.0); CHLORIDE 101 mmol/L (98-107); CREATININE 0.73 mg/dL (0.55-1.30); GLUCOSE 202 mg/dL (70-99); POTASSIUM 3.6 mmol/L (3.5-5.1); SODIUM SERUM 140 mmol/L (136-145); UREA NITROGEN, BLOOD 27 mg/dL (8-21)
[2016-10-02] MEDS: CHOLECALCIFEROL (VITAMIN D-3) 400 UNIT TABLET PO SCH (08:44)
[2016-10-02] MEDS: QUEtiapine FUMARATE 100 MG TABLET PO SCH ×2 (08:45→21:00)
[2016-10-02] MEDS: DIVALPROEX SODIUM 250 MG TABLET(DEPAKOTE) PO SCH ×2 (08:45→21:00)
[2016-10-02] MEDS: VALSARTAN 160 MG TABLET (DIOVAN) PO SCH (08:45)
[2016-10-02] MEDS: THEOPHYLLINE ANHYDROUS 300 MG TAB.SR.12H PO SCH ×2 (08:45→21:00)
[2016-10-02 08:46] LABS: BAND % (MANUAL) 4 % (0-6)
[2016-10-02] MEDS: ENOXAPARIN SODIUM 40 MG/0.4 ML SYRINGE SUBCUT SCH (08:46)
[2016-10-02] MEDS: BRIMONIDINE TARTRATE 0.2% 5 mL EYE DROPS OP SCH ×2 (08:47→21:11)
[2016-10-02 08:48] LABS: BASOPHILS % (MANUAL) 0 % (0-2); EOSINOPHILS % (MANUAL) 1 % (0-7); LYMPHOCYTES % (MANUAL) 11 % (20-46); METAMYELOCYTES % 3 % (0-0); MONOCYTES % (MANUAL) 19 % (0-11)
[2016-10-02] MEDS: HYDROCHLOROTHIAZIDE 25 MG TABLET (HCTZ) PO SCH (08:49)
[2016-10-02] MEDS: cefTRIAXone 1 GM IVPB PREMIX 50 ML IV SCH (14:43)
[2016-10-02 16:50] LABS: BLOOD GAS PH 7.422 (7.350-7.450)
[2016-10-02 16:51] LABS: ABG TOTAL HEMOGLOBIN 12.7 G/dL (12.0-18.0); BLOOD GAS BASE EXCESS 8.9 mmol/L (-3.0-3.0); BLOOD GAS HHB 13.2 % (0.0-6.0); BLOOD O2Hb% 85.4 % (94.0-97.0)
[2016-10-02] MEDS: ATORVASTATIN 20 MG TABLET PO SCH (21:00)
[2016-10-02] MEDS: traZODone HCL 50 MG TABLET (DESYREL) PO SCH (21:00)
[2016-10-03] VITALS (19 sets, daily range): BP systolic 102–159; BP diastolic 54–94; PULSE 65–114; RESP 18–36; TEMP 98–100.1; O2SAT 87–96
[2016-10-03] MEDS: NACL 0.9% 1,000 ML IV SCH ×2 (02:01→14:42)
[2016-10-03] MEDS: IPRATROPIUM BROM 0.5 MG/2.5 ML VIAL.NEB (ATROVENT) INH SCH ×5 (04:11→21:30)
[2016-10-03] MEDS: ALBUTEROL SULFATE 0.083% 2.5 MG/3 ML VIAL.NEB INH SCH ×5 (04:11→21:31)
[2016-10-03] MEDS: LEVOTHYROXINE SODIUM 0.1 MG TABLET PO SCH (06:00)
[2016-10-03 06:37] LABS: HEMATOCRIT 36.5 % (36-48); HEMOGLOBIN 12.2 g/dL (12.0-16.0); MEAN CORPUSCULAR HEMOGLOBIN 30 pg (27-31); MEAN CORPUSCULAR HGB CONC 34 % (32-36); MEAN CORPUSCULAR VOLUME 90 fL (79.0-98.0); PLATELET COUNT (AUTO) 81 K/uL (130-430); RED BLOOD CELL COUNT(AUTO) 4.07 MIL/uL (4.2-6.2); RED CELL DISTRIBUTION WIDTH 15.6 % (9.0-15.0)
[2016-10-03 06:41] LABS: ANION GAP 5 (5-15); CALCIUM 9.2 mg/dL (8.4-11.0); CHLORIDE 99 mmol/L (98-107); CREATININE 0.65 mg/dL (0.55-1.30); GLUCOSE 129 mg/dL (70-99); POTASSIUM 3.1 mmol/L (3.5-5.1); SODIUM SERUM 139 mmol/L (136-145); UREA NITROGEN, BLOOD 17 mg/dL (8-21)
[2016-10-03 07:24] LABS: WHITE BLOOD COUNT (AUTO) 10.5 K/uL (4.8-10.8)
[2016-10-03 07:43] LABS: BLOOD GAS PH 7.455 (7.350-7.450)
[2016-10-03 07:46] LABS: BLOOD GAS BASE EXCESS 9.1 mmol/L (-3.0-3.0); BLOOD GAS COHb% 0.8 % (0.5-1.5); BLOOD GAS HHB 8.6 % (0.0-6.0); BLOOD O2Hb% 90.4 % (94.0-97.0)
[2016-10-03] MEDS: QUEtiapine FUMARATE 100 MG TABLET PO SCH (09:03)
[2016-10-03] MEDS: CHOLECALCIFEROL (VITAMIN D-3) 400 UNIT TABLET PO SCH (09:07)
[2016-10-03] MEDS: THEOPHYLLINE ANHYDROUS 300 MG TAB.SR.12H PO SCH ×2 (09:08→20:22)
[2016-10-03] MEDS: VALSARTAN 160 MG TABLET (DIOVAN) PO SCH (09:08)
[2016-10-03] MEDS: DIVALPROEX SODIUM 250 MG TABLET(DEPAKOTE) PO SCH ×2 (09:08→20:20)
[2016-10-03] MEDS: ENOXAPARIN SODIUM 40 MG/0.4 ML SYRINGE SUBCUT SCH (09:09)
[2016-10-03] MEDS: HYDROCHLOROTHIAZIDE 25 MG TABLET (HCTZ) PO SCH (09:09)
[2016-10-03] MEDS: BRIMONIDINE TARTRATE 0.2% 5 mL EYE DROPS OP SCH ×2 (09:12→20:21)
[2016-10-03 11:13] LABS: ATYPICAL LYMPHOCYTES % 0 % (0-0); BAND % (MANUAL) 4 % (0-6); BASOPHILS % (MANUAL) 0 % (0-2); EOSINOPHILS % (MANUAL) 0 % (0-7); LYMPHOCYTES % (MANUAL) 11 % (20-46); MONOCYTES % (MANUAL) 27 % (0-11)
[2016-10-03] MEDS: POTASSIUM CHLORIDE 20 MEQ/PKT PACKET PO SCH ×2 (11:19→20:20)
[2016-10-03] MEDS: cefTRIAXone 1 GM IVPB PREMIX 50 ML IV SCH (11:20)
[2016-10-03] MEDS ORDERED: KCL 40 mEq in 100 mL (PREMIX) 100 ML IV ONE (15:45)
[2016-10-03] MEDS: INSULIN REGULAR, HUMAN 100 UNITS/ML, 10 ML VIAL (novoLIN R) SUBCUT PRN (17:51)
[2016-10-03] MEDS: MORPHINE 2 MG/ML INJ. SYRINGE IVP PRN (19:51)
[2016-10-03] MEDS: ATORVASTATIN 20 MG TABLET PO SCH (20:19)
[2016-10-03] MEDS: traZODone HCL 50 MG TABLET (DESYREL) PO SCH (20:20)
[2016-10-03] MEDS: QUEtiapine FUMARATE 25 MG TABLET PO SCH (20:20)
[2016-10-03 22:38] LABS: BLOOD GAS PH 7.459 (7.350-7.450)
[2016-10-03 22:39] LABS: BLOOD GAS BASE EXCESS 6.1 mmol/L (-3.0-3.0)
[2016-10-03 22:40] LABS: ABG TOTAL HEMOGLOBIN 13.6 G/dL (12.0-18.0); BLOOD GAS COHb% 1.2 % (0.5-1.5); BLOOD GAS HHB 11.4 % (0.0-6.0); BLOOD O2Hb% 86.9 % (94.0-97.0)
[2016-10-04] VITALS (16 sets, daily range): BP systolic 88–160; BP diastolic 45–94; PULSE 67–110; RESP 16–22; TEMP 96.3–98; O2SAT 95–99
[2016-10-04] MEDS: IPRATROPIUM BROM 0.5 MG/2.5 ML VIAL.NEB (ATROVENT) INH SCH ×6 (00:12→20:42)
[2016-10-04] MEDS: ALBUTEROL SULFATE 0.083% 2.5 MG/3 ML VIAL.NEB INH SCH ×6 (00:12→20:42)
[2016-10-04] MEDS: NACL 0.9% 1,000 ML IV SCH (03:35)
[2016-10-04] MEDS: LEVOTHYROXINE SODIUM 0.1 MG TABLET PO SCH (06:00)
[2016-10-04] MEDS: INSULIN REGULAR, HUMAN 100 UNITS/ML, 10 ML VIAL (novoLIN R) SUBCUT PRN ×2 (06:36→17:36)
[2016-10-04 07:44] LABS: ANION GAP 9 (5-15); CALCIUM 8.5 mg/dL (8.4-11.0); CHLORIDE 100 mmol/L (98-107); CREATININE 0.56 mg/dL (0.55-1.30); GLUCOSE 173 mg/dL (70-99); POTASSIUM 3.8 mmol/L (3.5-5.1); SODIUM SERUM 140 mmol/L (136-145); UREA NITROGEN, BLOOD 17 mg/dL (8-21)
[2016-10-04] MEDS: VALSARTAN 160 MG TABLET (DIOVAN) PO SCH (09:33)
[2016-10-04] MEDS: SILDENAFIL CITRATE 20 MG TABLET PO SCH ×3 (09:33→21:42)
[2016-10-04] MEDS: CHOLECALCIFEROL (VITAMIN D-3) 400 UNIT TABLET PO SCH (09:34)
[2016-10-04] MEDS: DIVALPROEX SODIUM 250 MG TABLET(DEPAKOTE) PO SCH ×2 (09:34→21:42)
[2016-10-04] MEDS: HYDROCHLOROTHIAZIDE 25 MG TABLET (HCTZ) PO SCH (09:35)
[2016-10-04] MEDS: ENOXAPARIN SODIUM 40 MG/0.4 ML SYRINGE SUBCUT SCH (09:35)
[2016-10-04] MEDS: BRIMONIDINE TARTRATE 0.2% 5 mL EYE DROPS OP SCH ×2 (09:36→21:41)
[2016-10-04] MEDS: QUEtiapine FUMARATE 25 MG TABLET PO SCH ×2 (09:36→21:42)
[2016-10-04] MEDS: THEOPHYLLINE ANHYDROUS 300 MG TAB.SR.12H PO SCH ×2 (09:38→21:42)
[2016-10-04] MEDS ORDERED: NS 500 ML IV ONE (10:35)
[2016-10-04] MEDS: cefTRIAXone 1 GM IVPB PREMIX 50 ML IV SCH (12:02)
[2016-10-04] MEDS ORDERED: ONDANSETRON HCL 4 MG/2 ML VIAL IVP PRN (14:15)
[2016-10-04] MEDS ORDERED: DEXTROSE 50% JECT 50 ML DISP.SYRIN IVP PRN (14:45)
[2016-10-04] MEDS ORDERED: *TPN PER PHARMACY XX PRN (14:45)
[2016-10-04] MEDS ORDERED: INSULIN REGULAR, HUMAN 100 UNITS/ML, 10 ML VIAL (novoLIN R) SUBCUT PRN (14:45)
[2016-10-04] MEDS: D5W 1,000 ML IV SCH (17:38)
[2016-10-04 18:35] LABS: ALBUMIN 3.1 g/dL (3.4-4.8); PHOSPHORUS 2.8 mg/dL (2.7-4.5); TOTAL BILIRUBIN 0.9 mg/dL (0.0-1.0); TOTAL PROTEIN, SERUM 6.2 g/dL (6.4-8.3)
[2016-10-04] MEDS: traZODone HCL 50 MG TABLET (DESYREL) PO SCH (21:41)
[2016-10-04] MEDS: ATORVASTATIN 20 MG TABLET PO SCH (21:42)
[2016-10-05] VITALS (10 sets, daily range): BP systolic 91–113; BP diastolic 52–74; PULSE 89–105; RESP 18–20; TEMP 96.4–98.9; O2SAT 90–97
[2016-10-05] MEDS: IPRATROPIUM BROM 0.5 MG/2.5 ML VIAL.NEB (ATROVENT) INH SCH ×7 (00:16→23:38)
[2016-10-05] MEDS: ALBUTEROL SULFATE 0.083% 2.5 MG/3 ML VIAL.NEB INH SCH ×7 (00:16→23:37)
[2016-10-05] MEDS: D5W 1,000 ML IV SCH (04:19)
[2016-10-05] MEDS: LEVOTHYROXINE SODIUM 0.1 MG TABLET PO SCH (06:17)
[2016-10-05] MEDS: INSULIN REGULAR, HUMAN 100 UNITS/ML, 10 ML VIAL (novoLIN R) SUBCUT PRN ×2 (06:47→18:19)
[2016-10-05 07:00] LABS: ALANINE AMINOTRANSFERASE 26 U/L (12-78); ALBUMIN 2.6 g/dL (3.4-4.8); ANION GAP 7 (5-15); ASPARTATE AMINOTRANSFERASE 10 U/L (10-37); CALCIUM 8.4 mg/dL (8.4-11.0); CHLORIDE 98 mmol/L (98-107); CREATININE 0.58 mg/dL (0.55-1.30); GLUCOSE 179 mg/dL (70-99); PHOSPHORUS 2.1 mg/dL (2.7-4.5); SODIUM SERUM 136 mmol/L (136-145); TOTAL BILIRUBIN 0.6 mg/dL (0.0-1.0); TOTAL PROTEIN, SERUM 6.5 g/dL (6.4-8.3); TRIGLYCERIDES 102 mg/dL (30-150); UREA NITROGEN, BLOOD 14 mg/dL (8-21)
[2016-10-05] MEDS ORDERED: *TPN PER PHARMACY XX PRN (07:15)
[2016-10-05 07:30] LABS: BLOOD GAS BASE EXCESS 6.8 mmol/L (-3.0-3.0); BLOOD GAS COHb% 0.7 % (0.5-1.5); BLOOD GAS HHB 5.8 % (0.0-6.0); BLOOD GAS PH 7.485 (7.350-7.450)
[2016-10-05] MEDS: VALSARTAN 160 MG TABLET (DIOVAN) PO SCH (08:45)
[2016-10-05] MEDS: HYDROCHLOROTHIAZIDE 25 MG TABLET (HCTZ) PO SCH (08:45)
[2016-10-05] MEDS: QUEtiapine FUMARATE 25 MG TABLET PO SCH ×2 (09:00→21:47)
[2016-10-05] MEDS: DIVALPROEX SODIUM 250 MG TABLET(DEPAKOTE) PO SCH ×2 (09:10→21:47)
[2016-10-05] MEDS: CHOLECALCIFEROL (VITAMIN D-3) 400 UNIT TABLET PO SCH (09:10)
[2016-10-05] MEDS: methylPREDNISolone SOD SUCC 40 MG/ML VIAL IVP SCH (09:11)
[2016-10-05] MEDS: THEOPHYLLINE ANHYDROUS 300 MG TAB.SR.12H PO SCH (09:11)
[2016-10-05] MEDS: BRIMONIDINE TARTRATE 0.2% 5 mL EYE DROPS OP SCH ×2 (09:11→21:47)
[2016-10-05] MEDS: SILDENAFIL CITRATE 20 MG TABLET PO SCH ×3 (09:11→21:47)
[2016-10-05] MEDS ORDERED: MAGNESIUM SULFATE IV SCH (09:15)
[2016-10-05] MEDS: ENOXAPARIN SODIUM 40 MG/0.4 ML SYRINGE SUBCUT SCH (09:15)
[2016-10-05] MEDS ORDERED: NS IV SCH (09:15)
[2016-10-05] MEDS: MAGNESIUM SULFATE 50 ML IV SCH ×2 (09:28→10:06)
[2016-10-05] MEDS: KCL 40 mEq in 100 mL (PREMIX) 100 ML IV SCH ×2 (11:06→15:19)
[2016-10-05] MEDS ORDERED: KCL 40 mEq in 100 mL (PREMIX) 100 ML IV ONE (12:30)
[2016-10-05] MEDS ORDERED: POTASSIUM CHLORIDE 40 MEQ, MAGNESIUM SULFATE 2 GM in NS 250 ML IV ONE (13:30)
[2016-10-05] MEDS: cefTRIAXone 1 GM IVPB PREMIX 50 ML IV SCH (13:44)
[2016-10-05] MEDS: traZODone HCL 50 MG TABLET (DESYREL) PO SCH (21:47)
[2016-10-05] MEDS: ATORVASTATIN 20 MG TABLET PO SCH (21:47)
[2016-10-05] MEDS: DRONABINOL 2.5 MG CAPSULE PO SCH (21:48)
[2016-10-06] VITALS (17 sets, daily range): BP systolic 93–118; BP diastolic 52–73; PULSE 49–97; RESP 16–20; TEMP 97–97.8; O2SAT 93–99
[2016-10-06] MEDS: D5W 1,000 ML IV SCH ×2 (02:02→21:48)
[2016-10-06] MEDS: IPRATROPIUM BROM 0.5 MG/2.5 ML VIAL.NEB (ATROVENT) INH SCH ×6 (04:18→23:39)
[2016-10-06] MEDS: ALBUTEROL SULFATE 0.083% 2.5 MG/3 ML VIAL.NEB INH SCH ×6 (04:19→23:39)
[2016-10-06 06:28] LABS: HEMATOCRIT 33.2 % (36-48); HEMOGLOBIN 10.9 g/dL (12.0-16.0); MEAN CORPUSCULAR HEMOGLOBIN 30 pg (27-31); MEAN CORPUSCULAR HGB CONC 33 % (32-36); MEAN CORPUSCULAR VOLUME 91 fL (79.0-98.0); PLATELET COUNT (AUTO) 102 K/uL (130-430); RED BLOOD CELL COUNT(AUTO) 3.65 MIL/uL (4.2-6.2); RED CELL DISTRIBUTION WIDTH 15.4 % (9.0-15.0)
[2016-10-06] MEDS: LEVOTHYROXINE SODIUM 0.1 MG TABLET PO SCH (06:32)
[2016-10-06] MEDS: INSULIN REGULAR, HUMAN 100 UNITS/ML, 10 ML VIAL (novoLIN R) SUBCUT PRN ×2 (06:35→17:38)
[2016-10-06 06:48] LABS: ALANINE AMINOTRANSFERASE 20 U/L (12-78); ALBUMIN 2.4 g/dL (3.4-4.8); ANION GAP 6 (5-15); ASPARTATE AMINOTRANSFERASE 10 U/L (10-37); CALCIUM 8.4 mg/dL (8.4-11.0); CHLORIDE 98 mmol/L (98-107); CREATININE 1.09 mg/dL (0.55-1.30); GLUCOSE 242 mg/dL (70-99); SODIUM SERUM 134 mmol/L (136-145); THYROID STIMULATING HORMONE 0.76 uIu/mL (0.34-4.82); TOTAL BILIRUBIN 0.3 mg/dL (0.0-1.0); TOTAL PROTEIN, SERUM 6.3 g/dL (6.4-8.3); UREA NITROGEN, BLOOD 24 mg/dL (8-21)
[2016-10-06 08:48] LABS: ATYPICAL LYMPHOCYTES % 0 % (0-0); BAND % (MANUAL) 0 % (0-6); BASOPHILS % (MANUAL) 0 % (0-2); EOSINOPHILS % (MANUAL) 0 % (0-7); LYMPHOCYTES % (MANUAL) 5 % (20-46); MONOCYTES % (MANUAL) 16 % (0-11)
[2016-10-06] MEDS: HYDROCHLOROTHIAZIDE 25 MG TABLET (HCTZ) PO SCH (09:00)
[2016-10-06] MEDS: VALSARTAN 160 MG TABLET (DIOVAN) PO SCH (09:00)
[2016-10-06] MEDS: methylPREDNISolone SOD SUCC 40 MG/ML VIAL IVP SCH (10:34)
[2016-10-06] MEDS: ENOXAPARIN SODIUM 40 MG/0.4 ML SYRINGE SUBCUT SCH (10:34)
[2016-10-06] MEDS: SILDENAFIL CITRATE 20 MG TABLET PO SCH ×3 (10:34→22:08)
[2016-10-06] MEDS: QUEtiapine FUMARATE 25 MG TABLET PO SCH ×2 (10:35→22:08)
[2016-10-06] MEDS: DIVALPROEX SODIUM 250 MG TABLET(DEPAKOTE) PO SCH ×2 (10:35→22:06)
[2016-10-06] MEDS: DRONABINOL 2.5 MG CAPSULE PO SCH ×2 (10:35→22:08)
[2016-10-06] MEDS: CHOLECALCIFEROL (VITAMIN D-3) 400 UNIT TABLET PO SCH (10:37)
[2016-10-06] MEDS: BRIMONIDINE TARTRATE 0.2% 5 mL EYE DROPS OP SCH ×2 (10:41→22:05)
[2016-10-06] MEDS: cefTRIAXone 1 GM IVPB PREMIX 50 ML IV SCH (13:33)
[2016-10-06] MEDS: ATORVASTATIN 20 MG TABLET PO SCH (22:07)
[2016-10-06] MEDS: traZODone HCL 50 MG TABLET (DESYREL) PO SCH (22:07)
[2016-10-06] MEDS ORDERED: CEFEPIME 1 GM/VIAL (MAXIPIME) ONE (22:45)
[2016-10-06] MEDS: CEFEPIME 1 GM in D5W 50 ML IV SCH (23:34)
[2016-10-07] VITALS (10 sets, daily range): BP systolic 87–132; BP diastolic 49–79; PULSE 62–95; RESP 17–20; TEMP 97.9–98.7; O2SAT 96–100
[2016-10-07] MEDS: ALBUTEROL SULFATE 0.083% 2.5 MG/3 ML VIAL.NEB INH SCH ×6 (03:44→23:00)
[2016-10-07] MEDS: IPRATROPIUM BROM 0.5 MG/2.5 ML VIAL.NEB (ATROVENT) INH SCH ×6 (03:45→23:00)
[2016-10-07] MEDS: D5W 1,000 ML IV SCH (04:38)
[2016-10-07] MEDS: LEVOTHYROXINE SODIUM 0.1 MG TABLET PO SCH (05:57)
[2016-10-07] MEDS: INSULIN REGULAR, HUMAN 100 UNITS/ML, 10 ML VIAL (novoLIN R) SUBCUT PRN ×2 (07:10→18:01)
[2016-10-07] MEDS: DRONABINOL 2.5 MG CAPSULE PO SCH ×2 (08:48→21:17)
[2016-10-07] MEDS: SILDENAFIL CITRATE 20 MG TABLET PO SCH ×3 (08:49→21:17)
[2016-10-07] MEDS: VALSARTAN 160 MG TABLET (DIOVAN) PO SCH (08:49)
[2016-10-07] MEDS: CHOLECALCIFEROL (VITAMIN D-3) 400 UNIT TABLET PO SCH (08:49)
[2016-10-07] MEDS: DIVALPROEX SODIUM 250 MG TABLET(DEPAKOTE) PO SCH ×2 (08:49→21:16)
[2016-10-07] MEDS: QUEtiapine FUMARATE 25 MG TABLET PO SCH ×2 (08:50→21:16)
[2016-10-07] MEDS: HYDROCHLOROTHIAZIDE 25 MG TABLET (HCTZ) PO SCH (08:50)
[2016-10-07] MEDS: methylPREDNISolone SOD SUCC 40 MG/ML VIAL IVP SCH (08:51)
[2016-10-07] MEDS: CEFEPIME 1 GM in D5W 50 ML IV SCH ×2 (08:51→21:15)
[2016-10-07] MEDS: ENOXAPARIN SODIUM 40 MG/0.4 ML SYRINGE SUBCUT SCH (08:51)
[2016-10-07] MEDS: BRIMONIDINE TARTRATE 0.2% 5 mL EYE DROPS OP SCH ×2 (08:51→21:15)
[2016-10-07] MEDS: ATORVASTATIN 20 MG TABLET PO SCH (21:16)
[2016-10-07] MEDS: traZODone HCL 50 MG TABLET (DESYREL) PO SCH (21:17)
[2016-10-08] VITALS (7 sets, daily range): BP systolic 130–138; BP diastolic 60–80; PULSE 64–90; RESP 17–18; TEMP 97.2–98.8; O2SAT 90–98
[2016-10-08] MEDS: ALBUTEROL SULFATE 0.083% 2.5 MG/3 ML VIAL.NEB INH SCH ×3 (04:18→11:00)
[2016-10-08] MEDS: IPRATROPIUM BROM 0.5 MG/2.5 ML VIAL.NEB (ATROVENT) INH SCH ×3 (04:19→11:00)
[2016-10-08] MEDS: LEVOTHYROXINE SODIUM 0.1 MG TABLET PO SCH (06:22)
[2016-10-08] MEDS: D5W 1,000 ML IV SCH (06:26)
[2016-10-08] MEDS: methylPREDNISolone SOD SUCC 40 MG/ML VIAL IVP SCH (08:45)
[2016-10-08] MEDS: ENOXAPARIN SODIUM 40 MG/0.4 ML SYRINGE SUBCUT SCH (08:45)
[2016-10-08] MEDS: CEFEPIME 1 GM in D5W 50 ML IV SCH (08:45)
[2016-10-08] MEDS: VALSARTAN 160 MG TABLET (DIOVAN) PO SCH (08:46)
[2016-10-08] MEDS: HYDROCHLOROTHIAZIDE 25 MG TABLET (HCTZ) PO SCH (08:46)
[2016-10-08] MEDS: CHOLECALCIFEROL (VITAMIN D-3) 400 UNIT TABLET PO SCH (08:47)
[2016-10-08] MEDS: DRONABINOL 2.5 MG CAPSULE PO SCH (08:47)
[2016-10-08] MEDS: QUEtiapine FUMARATE 25 MG TABLET PO SCH (08:47)
[2016-10-08] MEDS: SILDENAFIL CITRATE 20 MG TABLET PO SCH (08:47)
[2016-10-08] MEDS: DIVALPROEX SODIUM 250 MG TABLET(DEPAKOTE) PO SCH (08:48)
[2016-10-08] MEDS: BRIMONIDINE TARTRATE 0.2% 5 mL EYE DROPS OP SCH (08:48)
== END 2016-10-08 16:45 | DRG 870 ==
LOC: SED 17:50 → SIC 20:48 → STU 10-03 23:16
PROVIDERS: ADMIT Family Medicine; ATTEND Family Medicine
PROC: 5A09457 Assistance with Respiratory Ventilation, 24-96 Consecutive Hours, Continuous Positive Airway Pressure (ICD-10-PCS; 2016-09-23)
PROC: 5A1955Z Respiratory Ventilation, Greater than 96 Consecutive Hours (ICD-10-PCS; principal; 2016-09-24)
PROC: 0BH17EZ Insertion of Endotracheal Airway into Trachea, Via Natural or Artificial Opening (ICD-10-PCS; 2016-09-24)
PROC: 02HV33Z Insertion of Infusion Device into Superior Vena Cava, Percutaneous Approach (ICD-10-PCS; 2016-09-26)
DX: A41.9 Sepsis, unspecified organism (principal); J96.21 Acute and chronic respiratory failure with hypoxia; E43 Unspecified severe protein-calorie malnutrition; J18.9 Pneumonia, unspecified organism; J96.22 Acute and chronic respiratory failure with hypercapnia; E87.2 Acidosis; E66.2 Morbid (severe) obesity with alveolar hypoventilation; I24.8 Other forms of acute ischemic heart disease; Z68.41 Body mass index [BMI] 40.0-44.9, adult; J44.1 Chronic obstructive pulmonary disease with (acute) exacerbation; J44.0 Chronic obstructive pulmonary disease with (acute) lower respiratory infection; E11.40 Type 2 diabetes mellitus with diabetic neuropathy, unspecified; E78.5 Hyperlipidemia, unspecified; E03.9 Hypothyroidism, unspecified; F01.50 Vascular dementia, unspecified severity, without behavioral disturbance, psychotic disturbance, mood disturbance, and anxiety; F32.9 Major depressive disorder, single episode, unspecified; H35.30 Unspecified macular degeneration; I10 Essential (primary) hypertension; I87.8 Other specified disorders of veins; F41.1 Generalized anxiety disorder; J98.01 Acute bronchospasm; Z99.3 Dependence on wheelchair; Z86.73 Personal history of transient ischemic attack (TIA), and cerebral infarction without residual deficits
CPT/HCPCS: 36415; 36600; 71010; 71275; 80048; 80053; 80061; 80164-TC; 82040-TC; 82247-TC; 82803-TC; 82962; 83605; 83735-TC; 83880; 84100-TC; 84155-TC; 84439; 84443-TC; 84478-TC; 84484; 85007; 85025; 85027; 85379; 85610-TC; 85730-TC; 86710; 87040-TC; 87070-TC; 87081; 87205-TC; 93005; 93306; 93970; 94002; 94003; 94640; 94660; 94760; 96361; 96365; 96375; 99285; A6209; C1751; J0461; J0692; J0696; J1030; J1650; J1815; J1940; J1956; J2060; J2250; J2270; J2704; J2930; J3475; J3480; J3490; J7030; J7040; J7042; J7050; J7060; Q0144; Q0167; Q9967